=== PATIENT | male | born 2000 | race Caucasian/White ===

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

== ENCOUNTER 2018-01-14 15:43 | Emergency (ER) | payer OTHER, BC ==
[2018-01-14 16:01] VITALS: TEMP 98.1; BMI 27.4
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
[2018-01-14 18:55] VITALS: BP 140/72; PULSE 68
== END 2018-01-14 18:55 | disposition home or self-care (01) ==
LOC: JER 15:43
DX: G40.909 Epilepsy, unspecified, not intractable, without status epilepticus (principal); V43.52XA Car driver injured in collision with other type car in traffic accident, initial encounter; Y92.414 Local residential or business street as the place of occurrence of the external cause; Y93.89 Activity, other specified; Y99.8 Other external cause status
CPT/HCPCS: 36415; 70450-TC; 99281-25

== ENCOUNTER 2018-03-10 22:58 | Emergency (ER) | payer BC ==
[2018-03-10 23:16] VITALS: BMI 26.4
[2018-03-11 00:50] LABS: BASO % 0.2 % (0-2.0); EOS % 0.2 % (0-4.5); HEMATOCRIT 46.2 % (35.4-49); HEMOGLOBIN 14.9 GM/dL (11.7-16.9); MCH 26.1 pg (25.7-33.7); MCHC 32.2 g/dl (32.0-35.9); MEAN CELL VOLUME 81.3 fl (80-96); MEAN PLT VOLUME 9.6 fl (7.5-11.1); MONO % 5.2 % (3.8-10.2); NEUT % 83.4 % (42.8-82.8); PLATELET COUNT 207 K/MM3 (134-434); RBC 5.68 M/mm3 (4.00-5.60); RDW 14.2 % (11.9-15.9); WHITE BLOOD COUNT 9.7 K/mm3 (4.0-10.0)
[2018-03-11 01:16] LABS: ALBUMIN 4.3 g/dl (3.4-5.0); ALK PHOS 101 U/L (45-117); ANION GAP 8 (8-16); BILIRUBIN,TOTAL 0.1 mg/dL (0.2-1.0); BLOOD UREA NITROGEN 18 mg/dL (7-18); CALCIUM 9.3 mg/dL (8.5-10.1); CHLORIDE 109 mmol/L (98-107); CO2 25 mmol/L (21-32); CREATININE 1.1 mg/dL (0.7-1.3); GLUCOSE,RANDOM 97 mg/dL (74-106); SGPT/ALT 28 U/L (12-78); SODIUM 142 mmol/L (136-145); TOT PROT 7.7 g/dl (6.4-8.2)
[2018-03-11 01:19] LABS: SGOT/AST 15 U/L (15-37)
[2018-03-11 01:20] LABS: POTASSIUM 3.9 mmol/L (3.5-5.1)
--- NOTE | 2018-03-11 01:24 | PDOC ---
History of Present Illness - General Chief Complaint: Seizure Stated Complaint: SEIZURE Time Seen by Provider: 03/10/18 23:41 History Source: Patient, Family, Friend - History of Present Illness Initial Comments: 03/11/18 01:18 Pt is a 18yo male with PMH of seizures presenting to ED because he had a seizure witnessed by his friend. Pt called friend on the phone and I talked to him. Friend said that he tried to talk to the pt but pt was not responding. He looked over and saw pt slumping against the side of friend's car and he started to slide down. Friend said pt had eyes rolled back and arms flexed up against the chest. Pt slid down and hit his head. Pt was unconscious for 4-5 minutes. Friend called EMS. According to Pt, the next thing he remembered was being placed into the ambulance. Most recent seizure was January 23. Pt has not seen his neurologist for the past 4 months. Pt takes Keppra. He denies headache, changes in vision, neck stiffness, confusion, fever, chills, loss of bowel/bladder, muscle aches. Neurologist: Dr. Adam PCP: Dr. Linden Brock PMH: seizures PSH: none Allergies: nkda Meds: Keppra Past History - Past Medical History Allergies/Adverse Reactions: Allergies Allergy/AdvReac Type Severity Reaction Status Date / Time No Known Allergies Allergy Verified 01/14/18 15:51 Home Medications: Ambulatory Orders levETIRAcetam [Keppra -] 750 mg PO BID 05/14/17 levETIRAcetam [Keppra -] 1,250 mg PO BID #28 tablet 03/11/18 COPD: No Seizures: Yes - Immunization History Immunization Up to Date: Yes - Suicide/Smoking/Psychosocial Hx Smoking History: Never smoked Have you smoked in the past 12 months: No Information on smoking cessation initiated: No Hx Alcohol Use: No Drug/Substance Use Hx: No Substance Use Type: None *Physical Exam - Vital Signs Last Vital Signs Temp Pulse Resp BP Pulse Ox 98.7 F 90 16 157/70 96 03/10/18 23:02 03/10/18 23:02 03/10/18 23:02 03/10/18 23:02 03/10/18 23:02 - Physical Exam General Appearance: Yes: Nourished, Appropriately Dressed. No: Apparent Distress HEENT: positive: EOMI, ANCELMO, Pharynx Normal, Other (Swelling on posterior head on L side. No lacerations. ). negative: Pale Conjunctivae, Scleral Icterus (R) , Scleral Icterus (L) Neck: positive: Trachea midline, Supple Respiratory/Chest: positive: Lungs Clear, Normal Breath Sounds. negative: Crackles, Rales, Rhonchi, Stridor, Wheezing Cardiovascular: positive: Regular Rhythm, Regular Rate, S1, S2. negative: Edema , JVD, Murmur Vascular Pulses: Carotid (R): 2+, Carotid (L): 2+, Dorsalis-Pedis (R): 2+, Doralis-Pedis (L): 2+ Gastrointestinal/Abdominal: positive: Normal Bowel Sounds, Soft. 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, Fully Oriented, Alert, Normal Mood/ Affect, Normal Response, Motor Strength 11/28 ED Treatment Course - LABORATORY CBC & Chemistry Diagram: 03/11/18 00:34 03/11/18 00:34 - ADDITIONAL ORDERS Additional order review: 03/11/18 00:34 RBC 5.68 H MCV 81.3 MCHC 32.2 RDW 14.2 MPV 9.6 Neutrophils % 83.4 H D Lymphocytes % 11.0 D Monocytes % 5.2 Eosinophils % 0.2 D Basophils % 0.2 - RADIOLOGY Radiology Studies Ordered: Category Date Time Status HEAD CT WITHOUT CONTRAST [CT] Stat CT Scan 03/11/18 00:05 Taken Medical Decision Making - Medical Decision Making 03/29/18 17:52 Pt is a 18yo male with PMH of seizures presenting to ED because he had a seizure witnessed by his friend. Head CT ordered due to fall/LOC. -No acute findings. Ordered Keppra level however results would not be back. Other labs wnl. Called neurologist office, awaiting call back. Dr. Gr called office, asking to raise dose of Keppra in ED since pt had seizures a couple times within the past few months. New dose given. Pt stable and can be d/c home. Advised to follow up with neurology for management of seizures. Pt and family agreed to plan. *DC/Admit/Observation/Transfer Diagnosis at time of Disposition: Head injury with loss of consciousness, Seizure - Discharge Dispostion Disposition: HOME Condition at time of disposition: Stable Decision to Admit order: No - Prescriptions Prescriptions: levETIRAcetam [Keppra -] 1,250 mg PO BID #28 tablet - Referrals Referrals: Barry Larson DO [Staff Physician] - Stuart Brock MD [Primary Care Provider] - - Patient Instructions Printed Discharge Instructions: DI for Seizure Disorder -- Adult, DI for Closed Head Injury Additional Instructions: You were seen here today because you had a seizure and hit your head. We did some lab work and a CT scan of your head. The CT scan was normal and your lab work was normal. We will have the results of the level of Keppra in your blood in a couple of days. Please make an appointment with Dr. Larson within 1 week. We have increased the dose of your keppra to 1250mg twice a day instead of 1000mg twice a day. Begin taking this dose tomorrow. Please do not operate a car or machinery until you are cleared by neurology. Please come back to the ED if you have any new, worsening, or concerning symptoms. Thank you - Post Discharge Activity
[2018-03-11] MEDS ORDERED: BACITRACIN 15 GM TUBE TOPICAL OINTMENT TP ONE (02:30)
--- NOTE | 2018-03-11 02:38 | PDOC ---
Attending Attestation - Resident Resident Name: Brenna Pedersen - ED Attending Attestation I have performed the following: I have examined & evaluated the patient, The case was reviewed & discussed with the resident, I agree w/resident's findings & plan, Exceptions are as noted - HPI HPI: 03/11/18 02:30 The patient is a 18 year old male accompanied with his mother, with a past medical history of seizures, who presents to the ED for evaluation of a seizure. The patient had a witnessed seizure while helping his friend move things out of his car. Witness states pt was leaning on the car and his eyes rolled backwards as he slid down the car and fell backwards and hit his head on the floor. The pt then had generalized who body shaking for 3 mins. EMS was activated, the pt states he only remembers waking up in the ambulance. Pt had period of confusion afterwards which has since resolved. He reports compliance with his Keppra 1000mg BID. He presents to the ED in December for a seizure on the same dose of Keppra and was advised to f/u with neurology. The patient states he has not seen neurologist in past few months because it has been difficult to schedule an appointment. He denies any symptoms of fevers, chills, cp, sob, palpiations, abd pain, N/V/D, headache, focal weakness/numbness. Denies recent drug or etoh use. Reports some sleep deprivation as he recently lost his job and has been stressed. - Physicial Exam PE: 03/11/18 02:38 GENERAL: Awake, alert, and fully oriented, in no acute distress HEAD: No signs of trauma EYES: PERRLA, EOMI, sclera anicteric, conjunctiva clear ENT: Auricles normal inspection, hearing grossly normal, nares patent, oropharynx clear without exudates. Moist mucosa NECK: Normal ROM, supple, no lymphadenopathy, JVD, or masses LUNGS: Breath sounds equal, clear to auscultation bilaterally. No wheezes, and no crackles HEART: Regular rate and rhythm, normal S1 and S2, no murmurs, rubs or gallops ABDOMEN: Soft, nontender, normoactive bowel sounds. No guarding, no rebound. No masses EXTREMITIES: Normal range of motion, no edema. No clubbing or cyanosis. No cords , erythema, or tenderness. 2+ peripheral pulses x4. BACK: No midline spinal tenderness in cervical/thoracic/lumbar region NEUROLOGICAL: Normal speech, cranial nerves intact, negative pronator drift, 5/ 5 strength in all 4 extremities, normal sensation to light touch in all 4 extremities, normal cerebellar exam, normal gait, normal reflexes and tone SKIN: L elbow with 0.5x1cm superficial abrasion. R 2nd dorsal metacarophalangeal joint with 1x1cm superficial abrasion. Otherwise, warm, Dry, normal turgor, no rashes or lesions noted. - Medical Decision Making 03/11/18 02:41 18yo M hx seizure d/o presents with breakthrough seizure. Initial BP 150s systolic,on rpt 126/80. Remaining vitals wnl. Exam wnl other than superficial abrasions 2/2 fall after seizure. Labs unremarkable. CTH negative. Breakthrough seizure possibly 2/2 sleep deprivation. Call placed to Dr. Larson (pt saw him previously) to discuss possible keppra dosage change, awaiting call back. 03/11/18 03:[address] call back from Dr[address] Larson and thus spoke with neurologist sales support consultant Dr. Ratliff Given 2nd seizure in less than 3 months, will increase keppra to 1250mg BID Pt given first dose in ED No seizure activity in ED Superficial abrasions cleaned and dressed with baci Pt advised not to drive until cleared with neurology Requests DC home I discussed the physical exam findings, ancillary test results and final diagnoses with the patient. I answered all of the patient's questions. The patient was satisfied with the care received and felt comfortable with the discharge plan and treatment plan. The patient will call their primary care physician within 24 hours to arrange follow-up and will return to the Emergency Department with any new, persistent or worsening symptoms.
[2018-03-11] MEDS ORDERED: levETIRAcetam 500 MG TABLET (FP) PO ONE ×2 (03:23→03:31)
[2018-03-11 03:38] VITALS: BP 141/80; PULSE 60; TEMP 98
== END 2018-03-11 03:39 | disposition home or self-care (01) ==
LOC: JER 22:58
DX: G40.89 Other seizures (principal); S06.9X1A Unspecified intracranial injury with loss of consciousness of 30 minutes or less, initial encounter; W22.8XXA Striking against or struck by other objects, initial encounter; Y93.89 Activity, other specified; Y92.9 Unspecified place or not applicable
CPT/HCPCS: 36415; 70450-TC; 80053; 85025; 99282-25

== ENCOUNTER 2019-04-09 07:29 | Emergency (ER) | payer BC ==
--- NOTE | 2019-04-09 07:38 | PDOC ---
History of Present Illness - General Stated Complaint: SEIZURE Time Seen by Provider: 04/09/19 07:38 History Source: Patient, Parent(s) (Mom) - History of Present Illness Initial Comments: 04/09/19 07:52 Mr. Wright is a 19 y/o M with hx epilepsy p/w seizure at home. His mother reports that she installed a baby monitor in his room as he typically seizes while he is asleep. She reports hearing him grunting this AM through the monitor and found him having full body seizure activity. He reports taking Keppra, Lacosamide for his epilepsy, and reports taking them regularly without missing any doses. His mother reports that she is not sure if he has been taking the medications. He denies any other medication use, denies any drug or alcohol use , reports sleeping well. His mother reports that he did not fall off of the bed during the seizure. He denies any recent fevers, chills, change in appetite, fatigue, night sweats, dysuria, increased urinary frequency, cough, chest pain, shortness of breath. Neurologist: Dr. Larson Past History - Past Medical History Allergies/Adverse Reactions: Allergies Allergy/AdvReac Type Severity Reaction Status Date / Time No Known Allergies Allergy Verified 01/14/18 15:51 Home Medications: Ambulatory Orders Lacosamide [Vimpat -] 50 mg PO BID 04/09/19 levETIRAcetam [Keppra -] 1,000 mg PO BID 04/09/19 COPD: No Seizures: Yes - Immunization History Immunization Up to Date: Yes - Suicide/Smoking/Psychosocial Hx Smoking History: Never smoked Have you smoked in the past 12 months: No Hx Alcohol Use: No Drug/Substance Use Hx: No Substance Use Type: None Review of Systems - Review of Systems Able to Perform ROS?: Yes Comments:: 04/09/19 08:01 ROS: GENERAL/CONSTITUTIONAL: No fever or chills. No weakness. HEAD, EYES, EARS, NOSE AND THROAT: No change in vision. No ear pain or discharge. No sore throat. CARDIOVASCULAR: No chest pain or shortness of breath RESPIRATORY: No cough, wheezing, or hemoptysis. GASTROINTESTINAL: No nausea, vomiting, diarrhea or constipation. GENITOURINARY: No dysuria, frequency, or change in urination. MUSCULOSKELETAL: Hip pain. No other joint or muscle swelling or pain. No neck or back pain. SKIN: No rash NEUROLOGIC: Seizure. Mild headache. No vertigo, or change in strength/sensation. ENDOCRINE: No increased thirst. No abnormal weight change HEMATOLOGIC/LYMPHATIC: No anemia, easy bleeding, or history of blood clots. ALLERGIC/IMMUNOLOGIC: No hives or skin allergy. *Physical Exam - Physical Exam Comments: 04/09/19 08:02 PE: GENERAL: Awake, alert, and fully oriented, in no acute distress HEAD: No signs of trauma, normocephalic, atraumatic EYES: PERRLA, EOMI, sclera anicteric, conjunctiva clear ENT: Auricles normal inspection, hearing grossly normal, nares patent, oropharynx clear without exudates. Moist mucosa NECK: Normal ROM, supple, no lymphadenopathy, JVD, or masses LUNGS: No distress, speaks full sentences, clear to auscultation bilaterally HEART: Regular rate and rhythm, normal S1 and S2, no murmurs, rubs or gallops, peripheral pulses normal and equal bilaterally. ABDOMEN: Soft, nontender, normoactive bowel sounds. No guarding, no rebound. No masses EXTREMITIES : Normal inspection, Normal range of motion, no edema. No clubbing or cyanosis NEUROLOGICAL: Cranial nerves II through XII grossly intact. Normal speech, normal gait, no focal sensorimotor deficits SKIN: Warm, Dry, normal turgor, no rashes or lesions noted ED Treatment Course - LABORATORY CBC & Chemistry Diagram: 04/09/19 08:03 04/09/19 08:03 Medical Decision Making - Medical Decision Making 04/09/19 08:04 19 y/o M w/hx epilepsy p/w seizure at home, prior medication non-compliance makes non-compliance more likely vs breakthrough seizure. Plan: CBC CMP UA EKG Keppra level Neuro consult: Dr. Larson Dispo: Likely home pending labs --- Dr. Khan covering for Dr. Larson. Call placed. 04/09/19 10:40 Second call placed for Dr. Khan 04/09/19 11:[address] Khan. Plan for refilled Keppra/Lacosamide scripts, 1g Keppra loading dose. Plan for discharge and follow up with Dr. Larson for further evaluation. *DC/Admit/Observation/Transfer Diagnosis at time of Disposition: Seizure - Discharge Dispostion Disposition: HOME Condition at time of disposition: Stable Decision to Admit order: No - Referrals Referrals: Barry Larson DO [Staff Physician] - - Patient Instructions Printed Discharge Instructions: DI for Seizure Disorder -- Adult Additional Instructions: You were evaluated in the Emergency Department after a seizure at home. Your bloodwork was normal. We gave you a loading dose of Keppra while you were in the Emergency Department. Please make sure take your Keppra and Vimpat medications every day as prescribed to help prevent future seizures. Make sure that you follow up with your Neurologist (Dr. Larson) as soon as possible, within the next 7 days. Please return to the Emergency Department if you develop high fevers, chills, repeat seizures, weakness, severe nausea and vomiting, or develop any other concerning symptoms. - Post Discharge Activity
[2019-04-09 07:53] VITALS: PULSE 88; BMI 27.6
[2019-04-09 08:16] LABS: BASO % 0.5 % (0-2.0); EOS % 0.8 % (0-4.5); HEMATOCRIT 47.8 % (35.4-49); HEMOGLOBIN 15.7 GM/dL (11.7-16.9); MCH 26.2 pg (25.7-33.7); MCHC 32.9 g/dl (32.0-35.9); MEAN CELL VOLUME 79.8 fl (80-96); MEAN PLT VOLUME 9.7 fl (7.5-11.1); MONO % 3.3 % (3.8-10.2); NEUT % 83.4 % (42.8-82.8); PLATELET COUNT 210 K/MM3 (134-434); RBC 5.99 M/mm3 (4.00-5.60); RDW 13.8 % (11.9-15.9); WHITE BLOOD COUNT 7.9 K/mm3 (4.0-10.0)
[2019-04-09] MEDS ORDERED: ACETAMINOPHEN INJECTION 100 ML IVPB ONE (08:27)
--- NOTE | 2019-04-09 08:34 | PDOC ---
Attending Attestation - Resident Resident Name: Elmo Hamilton - ED Attending Attestation I have performed the following: I have examined & evaluated the patient, The case was reviewed & discussed with the resident, I agree w/resident's findings & plan, Exceptions are as noted - HPI HPI: 04/09/19 08:26 agree with resident HPI - Physicial Exam PE: 04/09/19 08:26 GENERAL: Awake, alert, and fully oriented, in no acute distress HEAD: No signs of trauma EYES: PERRLA, EOMI, sclera anicteric, conjunctiva clear ENT: Auricles normal inspection, hearing grossly normal, nares patent, oropharynx clear without exudates. Moist mucosa NECK: Normal ROM, supple, no lymphadenopathy, JVD, or masses LUNGS: Breath sounds equal, clear to auscultation bilaterally. No wheezes, and no crackles HEART: Regular rate and rhythm, normal S1 and S2, no murmurs, rubs or gallops ABDOMEN: Soft, nontender, normoactive bowel sounds. No guarding, no rebound. No masses EXTREMITIES: Normal range of motion, no edema. No clubbing or cyanosis. No cords, erythema, or tenderness NEUROLOGICAL: Normal speech, cranial nerves intact, negative pronator drift, 5/ 5 strength in all 4 extremities, normal sensation to light touch in all 4 extremities, normal cerebellar exam, normal gait, normal reflexes and tone SKIN: Warm, Dry, normal turgor, no rashes or lesions noted. - Medical Decision Making 04/09/19 08:34 19yo M hx seizure d/o on keppra and vimpat presents to the ED with seizure while in bed. Vitals wnl Exam wnl DDx for seizure includes medication non compliance vs infection vs metabolic disarray Pt previously reported compliance with Keppra but serum level was undetectable Today, pt evasive when asked if he misses doses of his medications Plan for labs, UA. Will discuss with Dr. Larson. No need for trauma imaging as no fall 04/09/19 12:06 Labs wnl UA wnl EKG wnl Discussed with Dr. Khan (covering for Dr. Larson), who recommended loading with Keppra 1000mg As Keppra was being hung, pt had another GTC seizure for about 2 mins He was given ativan 4mg, placed on NRB O2 sat 100%, seizure activity ceased Case discussed again with Dr. Khan, we will also load with vimpat 100mg (pt' s dose 50mg). Counted pt's remaining pills of vimpat and Keppra. Bottles both filled on 03/21. Pt should have approx 20 pills in each bottle, but has 33 of the keppra and 45 of vimpat remaining. He is likely missing doses of his AEDs, thus explaining breakthrough seizures Plan as discussed with Dr. Khan is to load pt with keppra/vimpat, and if he comes back to baseline, will DC with Dr. Larson f/u Pt ambulating in ED with steady gait. He is back to baseline. He is clinically stable for DC home - instructed not to miss any doses of his medications I discussed the physical exam findings, ancillary test results and final diagnoses with the patient. I answered all of the patient's questions. The patient was satisfied with the care received and felt comfortable with the discharge plan and treatment plan. The patient will call their primary care physician within 24 hours to arrange follow-up and will return to the Emergency Department with any new, persistent or worsening symptoms. Heart Score/ECG Review #1 04/09/19 08:34 EKG read and int by me: NSR, rate 92. Normal axis and intervals. No KIMBERLEY.
[2019-04-09] MEDS ORDERED: ACETAMINOPHEN 1000 MG/100 ML VIAL (NON FORMULARY) IVPB ONE (08:40)
[2019-04-09 08:52] LABS: ALBUMIN 4.3 g/dl (3.4-5.0); BILIRUBIN,TOTAL 0.4 mg/dL (0.2-1); BLOOD UREA NITROGEN 17.4 mg/dL (7-18); CALCIUM 9.7 mg/dL (8.5-10.1); CREATININE 1.1 mg/dL (0.55-1.3); POTASSIUM 3.6 mmol/L (3.5-5.1); TOT PROT 7.7 g/dl (6.4-8.2)
[2019-04-09] MEDS ORDERED: SODIUM CHLORIDE 1,000 ML IV STA (09:11)
[2019-04-09 10:27] LABS: PH,URINE 5.5 (5.0-8.0); URINE APPEARANCE CLEAR; URINE BILIRUBIN NEGATIVE (NEGATIVE); URINE COLOR YELLOW; URINE GLUCOSE (UA) NEGATIVE (NEGATIVE); URINE KETONE NEGATIVE (NEGATIVE); URINE LEUK ESTERASE NEGATIVE (NEGATIVE); URINE NITRITE NEGATIVE (NEGATIVE); URINE PROTEIN TRACE (NEGATIVE); URINE UROBILINOGEN 0.2 mg/dL (0.2-1.0)
[2019-04-09] MEDS ORDERED: levETIRAcetam 500 MG/5 ML INJECTION VIAL IVPB ONE ×2 (11:01→11:41)
[2019-04-09 11:04] LABS: COCAINE, UR NEGATIVE ng/ml (CUTOFF=300); METHADONE, UR NEGATIVE ng/ml (CUTOFF=300); OPIATES, URI NEGATIVE ng/ml (CUTOFF=300); PHENCYCLIDINE,URINE NEGATIVE ng/ml (CUTOFF=25); URINE AMPHETAMINES NEGATIVE ng/ml (CUTOFF=500); URINE BARBITURATES NEGATIVE ng/ml (CUTOFF=200); URINE BENZODIAZEPINES NEGATIVE ng/ml (CUTOFF=200)
[2019-04-09] MEDS ORDERED: LORazepam 2 MG/ML SDV VIAL ONE ×2 (11:46→11:49)
[2019-04-09] MEDS ORDERED: Lacosamide 200 MG/20 ML VIAL IVPB ONE ×2 (12:03→12:08)
[2019-04-09 14:48] VITALS: BP 128/72; TEMP 98.1
--- NOTE | 2019-04-09 14:58 | EKG ---
Test Reason : Blood Pressure : / mmHG Vent. Rate : 092 BPM Atrial Rate : 092 BPM P-R Int : 150 ms QRS Dur : 094 ms QT Int : 340 ms P-R-T Axes : 013 063 037 degrees QTc Int : 420 ms NORMAL SINUS RHYTHM NONSPECIFIC ST AND T WAVE ABNORMALITY ABNORMAL ECG WHEN COMPARED WITH ECG OF 14-MAY-2017 03:51, NO SIGNIFICANT CHANGE WAS FOUND Confirmed by MD LESLIE, ABRAHAM ([id number]) on 04/09/2019 2:58:11 PM Referred By: Confirmed By:ABRAHAM NELSON MD
== END 2019-04-09 16:30 | disposition home or self-care (01) ==
LOC: JER 07:29
PROC: 3E0337Z Introduction of Electrolytic and Water Balance Substance into Peripheral Vein, Percutaneous Approach (ICD-10-PCS; principal; 2019-04-09)
PROC: 3E033NZ Introduction of Analgesics, Hypnotics, Sedatives into Peripheral Vein, Percutaneous Approach (ICD-10-PCS; 2019-04-09)
PROC: 3E033NZ Introduction of Analgesics, Hypnotics, Sedatives into Peripheral Vein, Percutaneous Approach (ICD-10-PCS; 2019-04-09)
PROC: 3E033NZ Introduction of Analgesics, Hypnotics, Sedatives into Peripheral Vein, Percutaneous Approach (ICD-10-PCS; 2019-04-09)
PROC: 3E033GC Introduction of Other Therapeutic Substance into Peripheral Vein, Percutaneous Approach (ICD-10-PCS; 2019-04-09)
PROC: 3E033GC Introduction of Other Therapeutic Substance into Peripheral Vein, Percutaneous Approach (ICD-10-PCS; 2019-04-09)
DX: G40.909 Epilepsy, unspecified, not intractable, without status epilepticus (principal)
CPT/HCPCS: 36415; 80053; 80177; 80307; 81003; 85025; 93005; 93010; 99284-25; J0131; J7030

== ENCOUNTER 2020-05-28 05:22 | Emergency (ER) | payer BC ==
[2020-05-28 05:36] VITALS: TEMP 97.8; BMI 25.9
--- NOTE | 2020-05-28 05:44 | PDOC ---
History of Present Illness - General Chief Complaint: Seizure Stated Complaint: SEIZURES Time Seen by Provider: 05/28/20 05:29 - History of Present Illness Initial Comments: Irwin Wright is a 20 y/o male with PMH significant for epilepsy presenting today with generalized tonic clonic seizure. Last seizure was approximately 5 months ago. Pt has a camera/monitor installed at home as he often has nighttime seizures. Mother heard a sound on the monitor and woke up and saw the pt seizing. Reports generalized tonic clonic seizures lasting a couple minutes. Did not fall off the bed, no head trauma. Reports tongue biting. No urinary incontinence. Denies etoh/tobacco/drug use. Denies decreased sleep. Denies stress. Denies fever/chills. No chest pain/difficulty breathing. No abdominal pain. No back pain. No leg pain. Neuro: Dr. Larson Past History - Medical History Allergies/Adverse Reactions: Allergies Allergy/AdvReac Type Severity Reaction Status Date / Time No Known Allergies Allergy Verified 01/14/18 15:51 Home Medications: Ambulatory Orders Lacosamide [Vimpat -] 50 mg PO BID 04/09/19 levETIRAcetam [Keppra -] 1,000 mg PO BID 04/09/19 COPD: No Seizures: Yes - Immunization History Immunization Up to Date: Yes - Psycho-Social/Smoking History Smoking History: Never smoked Have you smoked in the past 12 months: No Information on smoking cessation initiated: No - Substance Abuse Hx (Audit-C & DAST Scrn) How often the patient has a drink containing alcohol: Monthly or less Score: In Men: 4 or > Positive; In Women: 3 or > Positive: 1 Screen Result (Pos requires Nsg. Audit-10AR): Negative In the last yr the pt used illegal drug/Rx for NonMed reason: No Score: Yes response is considered Positive: 0 Screen Result (Positive result requires Nsg. DAST-10): Negative Review of Systems - Review of Systems Comments:: GENERAL/CONSTITUTIONAL: No fever or chills. No weakness._ HEAD, EYES, EARS, NOSE AND THROAT: No change in vision. No change in hearing. No sore throat. Reports tongue laceration. CARDIOVASCULAR: No chest pain or shortness of breath_ RESPIRATORY: Denies cough, hemoptysis_ GASTROINTESTINAL: No nausea, vomiting, diarrhea or constipation._ GENITOURINARY: No dysuria, frequency, or change in urination._ MUSCULOSKELETAL: No joint or muscle swelling or pain. No neck or back pain._ SKIN: No rash_ NEUROLOGIC: +seizure. No headache, vertigo, loss of consciousness, or change in strength/sensation._ ENDOCRINE: No increased thirst. No abnormal weight change_ HEMATOLOGIC/LYMPHATIC: No anemia, easy bleeding, or history of blood clots._ ALLERGIC/IMMUNOLOGIC: No hives or skin allergy._ *Physical Exam - Vital Signs Last Vital Signs Temp Pulse Resp BP Pulse Ox 97.8 F 87 145/83 97 05/28/20 05:32 05/28/20 05:32 05/28/20 05:32 05/28/20 05:32 - Physical Exam GENERAL: Awake, alert, and oriented to person/place/time, in no acute distress_ HEAD: No signs of trauma, normocephalic, atraumatic. No hemotympanum or nasal deformity. No racoon's eyes or garcia signs. EYES: PERRLA, EOMI, sclera anicteric, conjunctiva clear_ ENT: Hearing grossly normal, nares patent, oropharynx clear without exudates. No uvular deviation. Moist mucosa. Small right lateral tongue dried blood, unable to visualize laceration. NECK: Normal ROM, supple, no lymphadenopathy, JVD, or masses_ LUNGS: No distress, speaks in full sentences, clear to auscultation bilaterally _ HEART: Regular rate and rhythm, normal S1 and S2, no murmurs appreciated, peripheral pulses normal and equal bilaterally._ ABDOMEN: Soft, nontender, normoactive bowel sounds. No guarding, no rebound. No masses_ EXTREMITIES: Normal inspection, Normal range of motion, no edema. No clubbing or cyanosis_ NEUROLOGICAL: Cranial nerves II through XII grossly intact. Normal speech, normal gait, no focal sensorimotor deficits _ SKIN: Warm, Dry, normal turgor, no rashes or lesions noted_ ED Treatment Course - LABORATORY CBC & Chemistry Diagram: 05/28/20 05:38 05/28/20 05:38 Medical Decision Making - Medical Decision Making 20M hx of epilepsy presenting today with generalized tonic clonic seizure lasting approximately 2 minutes tonight. Witnessed by mom. +tongue biting. Non focal neuro exam. Pt is A&Ox4, no post-ictal state in the ED. -cbc, cmp -ekg -ua -keppra level -seen with Dr. Vega -reassess, plan to discharge 05/28/20 06:03 EKG shows 86 bpm, NSR, no axis deviation, WI 150, QTc 435, no ST elevation/depression. 05/28/20 06:47 Labs reviewed. Laboratory Last Values WBC 8.3 K/mm3 (4.0-10.0) 05/28/20 05:38 RBC 6.20 M/mm3 (4.00-5.60) H 05/28/20 05:38 Hgb 15.9 GM/dL (11.7-16.9) 05/28/20 05:38 Hct 49.7 % (35.4-49) H 05/28/20 05:38 MCV 80.2 fl (80-96) 05/28/20 05:38 MCH 25.7 pg (25.7-33.7) 05/28/20 05:38 MCHC 32.0 g/dl (32.0-35.9) 05/28/20 05:38 RDW 13.9 % (11.9-15.9) 05/28/20 05:38 Plt Count 229 K/MM3 (134-434) 05/28/20 05:38 MPV 10.1 fl (7.5-11.1) 05/28/20 05:38 Absolute Neuts (auto) 5.9 K/mm3 (1.5-8.0) 05/28/20 05:38 Neutrophils % 70.6 % (42.8-82.8) 05/28/20 05:38 Lymphocytes % 20.8 % (8-40) D 05/28/20 05:38 Monocytes % 5.8 % (3.8-10.2) 05/28/20 05:38 Eosinophils % 2.3 % (0-4.5) D 05/28/20 05:38 Basophils % 0.5 % (0-2.0) 05/28/20 05:38 Nucleated RBC % 0 % (0-0) 05/28/20 05:38 Sodium 140 mmol/L (136-145) 05/28/20 05:38 Potassium 3.7 mmol/L (3.5-5.1) 05/28/20 05:38 Chloride 107 mmol/L (98-107) 05/28/20 05:38 Carbon Dioxide 26 mmol/L (21-32) 05/28/20 05:38 Anion Gap 7 MMOL/L (8-16) L 05/28/20 05:38 BUN 15.2 mg/dL (7-18) 05/28/20 05:38 Creatinine 1.2 mg/dL (0.55-1.3) 05/28/20 05:38 Est GFR (CKD-EPI)AfAm 98.89 05/28/20 05:38 Est GFR (CKD-EPI)NonAf 85.32 05/28/20 05:38 Random Glucose 123 mg/dL (74-106) H 05/28/20 05:38 Calcium 9.6 mg/dL (8.5-10.1) 05/28/20 05:38 Total Bilirubin 0.2 mg/dL (0.2-1) 05/28/20 05:38 AST 14 U/L (15-37) L 05/28/20 05:38 ALT 41 U/L (13-61) 05/28/20 05:38 Alkaline Phosphatase 126 U/L (45-117) H 05/28/20 05:38 Total Protein 7.4 g/dl (6.4-8.2) 05/28/20 05:38 Albumin 4.1 g/dl (3.4-5.0) 05/28/20 05:38 05/28/20 07:06 Case d/w Dr. Larson's partner who agrees with plan to d/c and will f/u in the office. All questions answered. Return precautions given. Pt verbalized understanding and agreement with plan. Discharge - Discharge Information Problems reviewed: Yes Clinical Impression/Diagnosis: Seizure Condition: Stable Disposition: HOME - Admission No - Follow up/Referral Referrals: Barry Larson DO [Staff Physician] - - Patient Discharge Instructions Patient Printed Discharge Instructions: DI for Seizure Disorder -- Adult Additional Instructions: Please continue taking your medications as prescribed. Please make a follow up appointment with your neurologist Dr. Larson within the next two days. If you experience any new, worsening, or concerning symptoms, including hea dache, vision changes, nausea/vomiting, weakness, numbness, tingling, or any other concerns, please return to the emergency room. - Post Discharge Activity
--- NOTE | 2020-05-28 05:45 | PDOC ---
Attending Attestation - Resident Resident Name: Zoran Julien - ED Attending Attestation I have performed the following: I have examined & evaluated the patient, The case was reviewed & discussed with the resident, I agree w/resident's findings & plan, Exceptions are as noted - HPI HPI: 20 yo M history epilepsy presents s/p tonic-clonic seizure, witnessed by mom via monitor that is in his room. Prior seizures occurred during sleep, which is why she has the monitor. Denies any missed meds, dosage changes. Last seizure 5 months ago. Has not been sleeping well recently. Denies substance use. No head trauma. - Physicial Exam PE: GENERAL: Awake, alert, and fully oriented, in no acute distress. Well-appearing. HEAD: No signs of trauma EYES: PERRLA, EOMI, sclera anicteric, conjunctiva clear ENT: Auricles normal inspection, hearing grossly normal, nares patent, oropharynx clear without exudates. Moist mucosa NECK: Normal ROM, supple, no lymphadenopathy, JVD, or masses LUNGS: Breath sounds equal, clear to auscultation bilaterally. No wheezes, and no crackles HEART: Regular rate and rhythm, normal S1 and S2, no murmurs, rubs or gallops ABDOMEN: Soft, nontender, normoactive bowel sounds. No guarding, no rebound. No masses EXTREMITIES: Normal range of motion, no edema. No clubbing or cyanosis. No cords, erythema, or tenderness NEUROLOGICAL: Cranial nerves II through XII grossly intact. Normal speech. Motor and sensation intact SKIN: Warm, dry, normal turgor, no rashes or lesions noted. - Medical Decision Making Pt presents s/p witnessed seizure. AAOX3 in ED, well-appearing. Labs normal. Stable for DC. Discharge - Discharge Information Problems reviewed: Yes Clinical Impression/Diagnosis: Seizure Condition: Stable Disposition: HOME - Follow up/Referral Referrals: Barry Larson DO [Staff Physician] - - Patient Discharge Instructions Patient Printed Discharge Instructions: DI for Seizure Disorder -- Adult Additional Instructions: Please continue taking your medications as prescribed. Please make a follow up appointment with your neurologist Dr. Larson within the next two days. If you experience any new, worsening, or concerning symptoms, including headache, vision changes, nausea/vomiting, weakness, numbness, tingling, or any other concerns, please return to the emergency room. - Post Discharge Activity
--- OUTSIDE RECORDS SUMMARY | 2020-05-28 05:46 | XMS ---
:2000 Author Organization [facility] Support Name Relationship Address Phone UE Unavailable Unavailable Unavailable CRYS RAMÍREZ MOTHER [address] [facility] [address] [address] Re-disclosure Warning The records that you are about to access may contain information from federally- assisted alcohol or drug abuse programs. If such information is present, then the following federally mandated warning applies: This information has been disclosed to you from records protected by federal confidentiality rules (42 CFR part 2). The federal rules prohibit you from making any further disclosure of this information unless further disclosure is expressly permitted by the written consent of the person to whom it pertains or as otherwise permitted by 42 CFR part 2. A general authorization for the release of medical or other information is NOT sufficient for this purpose. The Federal rules restrict any use of the information to criminally investigate or prosecute any alcohol or drug abuse patient.The records that you are about to access may contain highly sensitive health information, the redisclosure of which is protected by Article 27-F of the [facility] Public Health law. If you continue you may haveaccess to information: Regarding HIV / AIDS; Provided by facilities licensed or operated by the [facility] Office of Mental Health; or Provided by the [facility] Office for People With Developmental Disabilities. If such information is present, then the following [facility] mandated warning applies: This information has been disclosed to you from confidential records which are protected by state law. State law prohibits you from making any further disclosure of this information without the specific written consent of the person to whom it pertains, or as otherwise permitted by law. Any unauthorized further disclosure in violation of state law may result in a fine or assisted sentence or both. A general authorization for the release of medical or other information is NOT sufficient authorization for further disclosure. Insurance Providers Payer name Policy type / Policy ID Covered Covered democrat's Policy Plan Coverage type democrat ID relationship to Love Information love PPO [id number]
[2020-05-28] MEDS ORDERED: levETIRAcetam 500 MG/5 ML INJECTION VIAL IVPB ONE ×2 (05:59→06:07)
[2020-05-28 06:00] LABS: BASO % 0.5 % (0-2.0); EOS % 2.3 % (0-4.5); HEMATOCRIT 49.7 % (35.4-49); HEMOGLOBIN 15.9 GM/dL (11.7-16.9); LYMPH % 20.8 % (8-40); MCH 25.7 pg (25.7-33.7); MEAN CELL VOLUME 80.2 fl (80-96); MEAN PLT VOLUME 10.1 fl (7.5-11.1); MONO % 5.8 % (3.8-10.2); NEUT % 70.6 % (42.8-82.8); PLATELET COUNT 229 K/MM3 (134-434); RDW 13.9 % (11.9-15.9); WHITE BLOOD COUNT 8.3 K/mm3 (4.0-10.0)
[2020-05-28 06:01] LABS: POTASSIUM 3.7 mmol/L (3.5-5.1)
[2020-05-28 06:03] LABS: ALBUMIN 4.1 g/dl (3.4-5.0); CALCIUM 9.6 mg/dL (8.5-10.1)
[2020-05-28 06:04] LABS: BLOOD UREA NITROGEN 15.2 mg/dL (7-18)
[2020-05-28 06:06] LABS: CREATININE 1.2 mg/dL (0.55-1.3)
[2020-05-28 06:08] LABS: BILIRUBIN,TOTAL 0.2 mg/dL (0.2-1); TOT PROT 7.4 g/dl (6.4-8.2)
[2020-05-28 07:31] VITALS: BP 127/68; PULSE 70
--- NOTE | 2020-05-28 09:37 | EKG ---
Test Reason : Blood Pressure : / mmHG Vent. Rate : 086 BPM Atrial Rate : 086 BPM P-R Int : 150 ms QRS Dur : 094 ms QT Int : 364 ms P-R-T Axes : 032 064 032 degrees QTc Int : 435 ms NORMAL SINUS RHYTHM NONSPECIFIC ST AND T WAVE ABNORMALITY ABNORMAL ECG WHEN COMPARED WITH ECG OF 09-APR-2019 07:54, NO SIGNIFICANT CHANGE WAS FOUND Confirmed by ZANE STORY MD ([id number]) on 05/28/2020 9:37:24 AM Referred By: Confirmed By:ZANE STORY MD
== END 2020-05-28 07:31 | disposition home or self-care (01) ==
LOC: JER 05:22
PROC: 3E033GC Introduction of Other Therapeutic Substance into Peripheral Vein, Percutaneous Approach (ICD-10-PCS; principal; 2020-05-28)
DX: G40.89 Other seizures (principal)
CPT/HCPCS: 36415; 80053; 80177; 85025; 93005; 93010; 99284-25

== ENCOUNTER 2021-03-12 16:43 | Emergency (ER) | payer BC ==
[2021-03-12 18:05] VITALS: TEMP 98.4; BMI 29.8
[2021-03-12 18:44] LABS: BASO % 1.2 % (0-2.0); EOS % 0.6 % (0-4.5); HEMATOCRIT 43.5 % (35.4-49); HEMOGLOBIN 14.6 GM/dL (11.7-16.9); LYMPH % 13.1 % (8-40); MCH 26.6 pg (25.7-33.7); MCHC 33.7 g/dl (32.0-35.9); MEAN CELL VOLUME 78.9 fl (80-96); MEAN PLT VOLUME 9.2 fl (7.5-11.1); MONO % 5.3 % (3.8-10.2); NEUT % 79.8 % (42.8-82.8); PLATELET COUNT 218 10^3/uL (134-434); RBC 5.51 M/mm3 (4.00-5.60); RDW 13.6 % (11.9-15.9); WHITE BLOOD COUNT 10.4 K/mm3 (4.0-10.0)
[2021-03-12] MEDS ORDERED: Lacosamide 200 MG/20 ML VIAL IVPB ONE ×2 (18:54→19:39)
[2021-03-12 19:06] LABS: CALCIUM 9.4 mg/dL (8.5-10.1)
[2021-03-12 19:07] LABS: ALBUMIN 4.4 g/dl (3.4-5.0); BLOOD UREA NITROGEN 19.2 mg/dL (7-18)
[2021-03-12 19:10] LABS: CREATININE 1.1 mg/dL (0.55-1.3)
[2021-03-12 19:12] LABS: BILIRUBIN,TOTAL 0.2 mg/dL (0.2-1); TOT PROT 7.6 g/dl (6.4-8.2)
[2021-03-12 21:19] VITALS: BP 153/97; PULSE 67
== END 2021-03-12 20:38 | disposition home or self-care (01) ==
LOC: JER 16:43
PROC: 3E033GC Introduction of Other Therapeutic Substance into Peripheral Vein, Percutaneous Approach (ICD-10-PCS; principal; 2021-03-12)
DX: R56.9 Unspecified convulsions (principal)
CPT/HCPCS: 36415; 80053; 80177; 82962; 85025; 93005; 93010; 99284-25

== ENCOUNTER 2021-11-05 05:13 | Emergency (ER) | payer BC ==
[2021-11-05 05:25] VITALS: TEMP 98.2; BMI 30.1
[2021-11-05] MEDS ORDERED: LACOSAMIDE 200 MG TABLET PO ONE (06:03)
[2021-11-05] MEDS ORDERED: levETIRAcetam 500 MG TABLET (FP) PO ONE ×2 (06:03→06:09)
[2021-11-05] MEDS ORDERED: LACOSAMIDE 50 MG TABLET PO ONE (06:09)
[2021-11-05] MEDS ORDERED: ACETAMINOPHEN 500 MG TABLET (FP) PO ONE (06:13)
[2021-11-05 06:17] LABS: BLOOD UREA NITROGEN 17.2 mg/dL (7-18); CALCIUM 9.1 mg/dL (8.5-10.1)
[2021-11-05 06:21] LABS: CREATININE 1.1 mg/dL (0.55-1.3)
[2021-11-05] MEDS ORDERED: ACETAMINOPHEN 325 MG TABLET (FP) ONE (06:22)
[2021-11-05 06:43] VITALS: BP 135/90; PULSE 73
== END 2021-11-05 06:57 | disposition home or self-care (01) ==
LOC: JER 05:13
DX: R56.9 Unspecified convulsions (principal)
CPT/HCPCS: 36415; 80048; 99283-25